=== PATIENT | female | born 1940 | race Two or more races ===

== ENCOUNTER 2024-11-17 19:35 | Emergency (ER) | payer MEDICARE, OTHER ==
[~2024-11-17] VITALS: Ht 165.1 cm; Wt 57.6 kg
[2024-11-17] MEDS: LIDOCAINE 1%-EPI 1:100,000 20 ML VIAL TP ONE (22:04)
[2024-11-17] MEDS ORDERED: TDAP [DIPH/PERTUSSIS/TET] 0.5 ML VIAL IM ONE (22:05)
[2024-11-17] MEDS: TDAP [DIPH/PERTUSSIS/TET] 0.5 ML VIAL IM ONE (22:08)
[2024-11-18 00:25] VITALS: BP 149/74; TEMP 98.1; O2SAT 98
== END 2024-11-18 00:25 | disposition home or self-care (01) ==
LOC: ER 19:37
DX: S01.01XA Laceration without foreign body of scalp, initial encounter (principal); J44.9 Chronic obstructive pulmonary disease, unspecified; K21.9 Gastro-esophageal reflux disease without esophagitis; F03.90 Unspecified dementia, unspecified severity, without behavioral disturbance, psychotic disturbance, mood disturbance, and anxiety; W18.30XA Fall on same level, unspecified, initial encounter; Y93.89 Activity, other specified; Y92.89 Other specified places as the place of occurrence of the external cause; Y99.8 Other external cause status
CPT/HCPCS: 70450-TC; 90715